=== PATIENT | female | born 1995 | race Caucasian/White ===

== ENCOUNTER 2017-02-04 12:54 | Emergency (ER) | payer MEDICAID, OTHER ==
[~2017-02-04] VITALS: Ht 160 cm; Wt 145.1 kg
[2017-02-04 13:54] VITALS: BP 130/52
== END 2017-02-04 14:25 | disposition home or self-care (01) ==
LOC: ER 12:54
DX: J02.9 Acute pharyngitis, unspecified (principal); F17.210 Nicotine dependence, cigarettes, uncomplicated; Z90.49 Acquired absence of other specified parts of digestive tract